=== PATIENT | male | born 1995 | race Caucasian/White ===

== ENCOUNTER 2018-08-01 20:35 | Emergency (ER) | payer BC ==
[2018-08-01] MEDS ORDERED: NS 1,000 ML IV (22:00)
[2018-08-01] MEDS: PANTOPRAZOLE 40MG INJ (PROTONIX) (C9113) IV (22:59)
[2018-08-01] MEDS: NS 1,000 ML IV (22:59)
[2018-08-01] MEDS: ONDANSETRON 4MG/2ML VIAL (J2405) IV (22:59)
[2018-08-01 23:03] LABS: BASO # 0.1 10^3/uL (0.0-0.2); BASO % 0.4 % (0.0-1.0); EOS # 0.1 10^3/uL (0.0-0.50); EOS % 1.2 % (0.0-3.0); HEMOGLOBIN 15.5 g/dl (13.5-17.5); IMMATURE GRANULOCYTE % 0.5 % (0-3.0); LYMPH # 2.6 10^3/uL (1.5-6.5); LYMPH % 22.6 % (24.0-44.0); MEAN CORPUSCULAR HEMOGLOBIN 28.4 pg (27.0-33.0); MEAN CORPUSCULAR HGB CONC 34.4 g/dl (32.0-36.5); MEAN CORPUSCULAR VOLUME 82.6 fl (80.0-96.0); MONO # 0.8 10^3/uL (0.0-0.8); NEUTROPHILS # 7.8 10^3/uL (1.8-7.7); NEUTROPHILS % 68.3 % (36.0-66.0); PLATELET COUNT, AUTOMATED 214 10^3/uL (150-450); RED BLOOD COUNT 5.45 10^6/uL (4.30-6.10); RED CELL DISTRIBUTION WIDTH 12.5 % (11.5-14.5); WHITE BLOOD COUNT 11.4 10^3/uL (4.0-10.0)
[2018-08-01 23:07] LABS: APPEARANCE, URINE CLEAR (CLEAR); BACTERIA, URINE AUTO NEGATIVE (NEGATIVE); BILIRUBIN, URINE AUTO 2+ (NEGATIVE); BLOOD, URINE BLOOD NEGATIVE (NEGATIVE); COLOR, URINE AMBER (YELLOW); GLUCOSE, URINE (UA) AUTO NEGATIVE (NEGATIVE); KETONE, URINE AUTO NEGATIVE (NEGATIVE); LEUKOCYTE ESTERASE, URINE AUTO NEGATIVE (NEGATIVE); MUCUS, URINE SMALL (NEGATIVE); NITRITE, URINE AUTO NEGATIVE (NEGATIVE); PROTEIN, URINE AUTO NEGATIVE (NEGATIVE); RBC, URINE AUTO 0 /HPF (0-3); SPECIFIC GRAVITY URINE AUTO 1.024 (1.002-1.035); SQUAMOUS EPITHELIAL CELL UR AU 0 /HPF (0-6); WBC, URINE AUTO 0 /HPF (0-3)
[2018-08-02 00:03] LABS: ALBUMIN 3.5 GM/DL (3.2-5.2); ALBUMIN/GLOBULIN RATIO 1.17 (1.00-1.93); ALKALINE PHOSPHATASE 137 U/L (45-117); ALT/SGPT 656 U/L (12-78); AMYLASE 28 U/L (25-115); ANION GAP 9 MEQ/L (8-16); AST/SGOT 262 U/L (7-37); BILIRUBIN,DIRECT 2.5 MG/DL (0.0-0.2); BILIRUBIN,TOTAL 3.3 MG/DL (0.2-1.0); BLOOD UREA NITROGEN 10 MG/DL (7-18); CALCIUM LEVEL 8.2 MG/DL (8.5-10.1); CARBON DIOXIDE LEVEL 26 MEQ/L (21-32); CHLORIDE LEVEL 107 MEQ/L (98-107); CREATININE FOR GFR 1.06 MG/DL (0.70-1.30); GLOMERULAR FILTRATION RATE > 60.0 (>60); GLUCOSE, FASTING 128 MG/DL (70-100); LIPASE 182 U/L (73-393); POTASSIUM SERUM 3.9 MEQ/L (3.5-5.1); SODIUM LEVEL 142 MEQ/L (136-145); TOTAL PROTEIN 6.5 GM/DL (6.4-8.2)
[2018-08-03 10:42] LABS: HEPATITIS C VIRUS ABY INDEX < 0.0 INDEX (<0.8)
[2018-08-03 10:42] LABS: HEPATITIS A ANTIBODY IGM NEGATIVE (NEGATIVE); HEPATITIS B CORE ANTIBODY IGM NEGATIVE (NEGATIVE); HEPATITIS B SURFACE ANTIGEN NEGATIVE (NEGATIVE)
== END 2018-08-02 02:16 | disposition home or self-care (01) ==
LOC: M ED 08-02 02:16
DX: K80.70 Calculus of gallbladder and bile duct without cholecystitis without obstruction (principal); K76.0 Fatty (change of) liver, not elsewhere classified; R74.8 Abnormal levels of other serum enzymes; E80.6 Other disorders of bilirubin metabolism; Z88.1 Allergy status to other antibiotic agents; Z88.2 Allergy status to sulfonamides
CPT/HCPCS: C9113

== ENCOUNTER 2018-10-21 07:46 | Emergency (ER) | payer BC ==
[~2018-10-21] VITALS: Ht 175.3 cm; Wt 98.1 kg
[~2018-10-21 07:46] MED LIST: PROT1TAB2 PO; ZOFR4TAB14 PO
[2018-10-21] MEDS ORDERED: NS 1,000 ML IV ONE (08:00)
[2018-10-21] MEDS ORDERED: KETOROLAC 30 MG/ML VIAL (J1885) IV ONE (08:00)
[2018-10-21 08:21] LABS: BASO % 0.5 % (0.0-1.0); EOS # 0.1 10^3/uL (0.0-0.50); EOS % 0.9 % (0.0-3.0); HEMATOCRIT 45.7 % (42.0-52.0); HEMOGLOBIN 15.8 g/dl (13.5-17.5); LYMPH # 1.3 10^3/uL (1.5-6.5); LYMPH % 16.2 % (24.0-44.0); MEAN CORPUSCULAR HEMOGLOBIN 28.3 pg (27.0-33.0); MEAN CORPUSCULAR HGB CONC 34.6 g/dl (32.0-36.5); MEAN CORPUSCULAR VOLUME 81.9 fl (80.0-96.0); MONO # 0.5 10^3/uL (0.0-0.8); MONO % 5.8 % (0.0-5.0); NEUTROPHILS % 76.1 % (36.0-66.0); PLATELET COUNT, AUTOMATED 234 10^3/uL (150-450); RED BLOOD COUNT 5.58 10^6/uL (4.30-6.10); WHITE BLOOD COUNT 7.8 10^3/uL (4.0-10.0)
[2018-10-21 08:55] LABS: ALBUMIN 4.3 GM/DL (3.2-5.2); ALT/SGPT 693 U/L (12-78); AMYLASE 31 U/L (25-115); BILIRUBIN,DIRECT 1.6 MG/DL (0.0-0.2); BILIRUBIN,TOTAL 2.5 MG/DL (0.2-1.0); BLOOD UREA NITROGEN 10 MG/DL (7-18); CALCIUM LEVEL 9.1 MG/DL (8.5-10.1); CARBON DIOXIDE LEVEL 27 MEQ/L (21-32); CHLORIDE LEVEL 103 MEQ/L (98-107); CREATININE FOR GFR 1.09 MG/DL (0.70-1.30); GLOMERULAR FILTRATION RATE > 60.0 (>60); GLUCOSE, FASTING 120 MG/DL (70-100); LIPASE 186 U/L (73-393); POTASSIUM SERUM 3.8 MEQ/L (3.5-5.1); SODIUM LEVEL 137 MEQ/L (136-145); TOTAL PROTEIN 7.9 GM/DL (6.4-8.2)
--- NOTE | 2018-10-21 09:21 | REP ---
Clinical: Right upper quadrant pain. Technique: Real time escamilla scale ultrasound examination using curved array transducer. Findings: Gallbladder demonstrates layering sludge and gallstones without wall thickening or pericholecystic fluid. No biliary ductal dilatation is appreciated and the common bile duct measures 3.9 mm diameter. The liver is mildly increased in echotexture without focal hepatic lesion identified. The pancreas is incompletely evaluated due to interposed bowel gas but visualized portions appear normal. The right kidney is normal in reniform shape and echogenicity without hydronephrosis and measures 12.6 x 4.8 x 4.5 cm. No ascites in the visualized right upper quadrant. Impression: 1. Cholelithiasis without sonographic evidence for acute cholecystitis. 2. Hepatic steatosis. Electronically Signed by Missael Langston MD 10/21/2018 09:12 A
[2018-10-21] MEDS ORDERED: NORCOTAB PO (10:40)
[2018-10-21 10:48] VITALS: BP 124/79
== END 2018-10-21 10:52 | disposition home or self-care (01) ==
LOC: M ED 07:46
DX: K80.70 Calculus of gallbladder and bile duct without cholecystitis without obstruction (principal); E80.6 Other disorders of bilirubin metabolism; K76.0 Fatty (change of) liver, not elsewhere classified; Z88.1 Allergy status to other antibiotic agents; Z88.2 Allergy status to sulfonamides
CPT/HCPCS: 76705; 80048; 80076; 81001; 82150; 83690; 85025; 96374; 99284; J1885

== ENCOUNTER 2019-01-18 13:45 | Emergency (ER) | payer BC ==
[~2019-01-18] VITALS: Ht 175.3 cm; Wt 97.7 kg
[~2019-01-18 13:45] MED LIST changes: +HYDR-3715 PO
[2019-01-18 14:36] LABS: BASO % 0.3 % (0.0-1.0); EOS % 0.3 % (0.0-3.0); HEMATOCRIT 44.9 % (42.0-52.0); HEMOGLOBIN 15.9 g/dl (13.5-17.5); LYMPH # 1.6 10^3/uL (1.5-6.5); LYMPH % 17.2 % (24.0-44.0); MEAN CORPUSCULAR HEMOGLOBIN 28.3 pg (27.0-33.0); MEAN CORPUSCULAR HGB CONC 35.4 g/dl (32.0-36.5); MONO # 0.7 10^3/uL (0.0-0.8); MONO % 7.6 % (0.0-5.0); NEUTROPHILS # 6.8 10^3/uL (1.8-7.7); PLATELET COUNT, AUTOMATED 269 10^3/uL (150-450); RED BLOOD COUNT 5.61 10^6/uL (4.30-6.10); WHITE BLOOD COUNT 9.3 10^3/uL (4.0-10.0)
[2019-01-18 15:01] LABS: ALBUMIN 4.2 GM/DL (3.2-5.2); ALT/SGPT 573 U/L (12-78); BILIRUBIN,DIRECT 2.1 MG/DL (0.0-0.2); BILIRUBIN,TOTAL 3.2 MG/DL (0.2-1.0); BLOOD UREA NITROGEN 10 MG/DL (7-18); CALCIUM LEVEL 9.4 MG/DL (8.5-10.1); CARBON DIOXIDE LEVEL 26 MEQ/L (21-32); CHLORIDE LEVEL 105 MEQ/L (98-107); CREATININE FOR GFR 1.06 MG/DL (0.70-1.30); GLOMERULAR FILTRATION RATE > 60.0 (>60); GLUCOSE, FASTING 111 MG/DL (70-100); LIPASE 174 U/L (73-393); POTASSIUM SERUM 4.1 MEQ/L (3.5-5.1); SODIUM LEVEL 138 MEQ/L (136-145); TOTAL PROTEIN 7.3 GM/DL (6.4-8.2)
[2019-01-18] MEDS ORDERED: KETO10TAB PO (17:00)
[2019-01-18 17:17] VITALS: BP 147/84
--- NOTE | 2019-01-18 17:31 | REP ---
GALLBLADDER ULTRASOUND: Real-time sonographic evaluation of the gallbladder was performed. Patient is tender at the gallbladder site. Multiple stones and sludge in the gallbladder with mild diffuse gallbladder wall thickening, 4 mm in thickness. Common bile duct is upper limits of normal in diameter at 7 mm. There appears to be diffuse fibrofatty infiltration of the liver with no gross liver of pancreatic mass. Pancreas is not optimally seen due to overlying bowel gas. Right kidney demonstrates no hydronephrosis with normal size of 11.5 cm in length. IMPRESSION: Patient is tender at the gallbladder. Stones and sludge in the gallbladder with mild gallbladder wall thickening. Common bile duct upper limits of normal in diameter 7 mm. There is diffuse fatty infiltration of the liver. Electronically Signed by Franco Lewis MD 01/20/2019 10:01 A
== END 2019-01-18 17:29 | disposition home or self-care (01) ==
LOC: M ED 13:45
DX: K80.70 Calculus of gallbladder and bile duct without cholecystitis without obstruction (principal); R11.10 Vomiting, unspecified; Z87.19 Personal history of other diseases of the digestive system; Z88.2 Allergy status to sulfonamides

== ENCOUNTER 2022-09-23 17:31 | Emergency (ER) | payer BC ==
[~2022-09-23] VITALS: Ht 175.3 cm; Wt 112.4 kg
[~2022-09-23 17:31] MED LIST changes: +KETO10TAB PO
[2022-09-23 17:32] VITALS: BP 156/98
[2022-09-23 18:59] LABS: BASO # 0.1 10^3/uL (0.0-0.2); BASO % 0.5 % (0.0-1.0); EOS # 0.2 10^3/uL (0.0-0.5); EOS % 1.2 % (0.0-3.0); HEMATOCRIT 47.1 % (42.0-52.0); HEMOGLOBIN 16.4 g/dl (13.5-17.5); LYMPH # 2.9 10^3/uL (1.5-5.0); LYMPH % 21.9 % (24.0-44.0); MEAN CORPUSCULAR HGB CONC 34.8 g/dl (32.0-36.5); MEAN CORPUSCULAR VOLUME 80.5 fl (80.0-96.0); MONO # 0.9 10^3/uL (0.0-0.8); MONO % 6.9 % (2.0-8.0); NEUTROPHILS # 9.1 10^3/uL (1.5-8.5); NEUTROPHILS % 69.1 % (36.0-66.0); PLATELET COUNT, AUTOMATED 258 10^3/uL (150-450); RED BLOOD COUNT 5.85 10^6/uL (4.30-6.10); WHITE BLOOD COUNT 13.2 10^3/uL (4.0-10.0)
[2022-09-23 19:27] LABS: CHLORIDE LEVEL 102 MMOL/L (98-107); POTASSIUM SERUM 4.5 MMOL/L (3.5-5.1); SODIUM LEVEL 139 MMOL/L (136-145)
[2022-09-23 19:28] LABS: ALBUMIN 4.6 G/DL (3.2-5.2); CARBON DIOXIDE LEVEL 28 MMOL/L (20-31)
[2022-09-23 19:33] LABS: GLUCOSE, FASTING 105 MG/DL (60-100)
[2022-09-23 19:34] LABS: BLOOD UREA NITROGEN 9 MG/DL (9-23); LIPASE 31 U/L (12-53)
[2022-09-23 19:35] LABS: ALT/SGPT 88 U/L (7.0-40); BILIRUBIN,DIRECT 0.2 MG/DL (<0.4); CREATININE FOR GFR 1.05 MG/DL (0.70-1.30); GLOMERULAR FILTRATION RATE > 60.0 (>60)
[2022-09-23 19:36] LABS: BILIRUBIN,TOTAL 0.7 MG/DL (0.3-1.2); TOTAL PROTEIN 7.3 G/DL (5.7-8.2)
== END 2022-09-23 22:42 | disposition left against medical advice (07) ==
LOC: M ED 17:31
DX: Z53.21 Procedure and treatment not carried out due to patient leaving prior to being seen by health care provider (principal)

== ENCOUNTER → 2023-02-19 | Outpatient (CLI) | payer BC | LOC: M WUC 09:06 | PROVIDERS: ATTEND Student in an Organized Health Care Education/Training Program | DX: M79.671 Pain in right foot (principal) ==